=== PATIENT | female | born 2000 | race Caucasian/White ===

== ENCOUNTER 2025-04-02 07:17 | Inpatient (IN) | payer OTHER, SELFPAY ==
[2025-04-02] VITALS (48 sets, daily range): BP systolic 112–135; BP diastolic 57–85; PULSE 79–115; RESP 16–20; TEMP 36.4–36.9; O2SAT 96–100; BMI 35.2
[2025-04-02 08:04] LABS: Hematocrit 32.4 % (37-47); Hemoglobin 10.4 g/dL (12.0-15.0); Immature Granulocytes Count 0.050 X10^3/uL (0.0-0.0); Mean Corp Hgb Conc 32.1 g/dL (32-36); Mean Corpuscular Volume 90.3 fL (81-99); Mean Platelet Vol. 10.0 fl (6.2-12.0); NRBC Flagged by Analyzer 0 % (0-5); Platelet Count 319 K/mm3 (150-450); RBC Distribution Width CV 13.5 % (11.6-14.6); RBC Distribution Width SD 44.6 fl (35.1-43.9); Red Blood Count 3.59 M/mm3 (4.2-5.4); White Blood Count 9.7 K/mm3 (4.4-11.0)
--- NOTE | 2025-04-02 08:12 | PCM.HP.OB ---
HPI - General General Date of Admission: 04/02/25 HPI Narrative SHARITA BOSE, is a 24 F at 37.6 weeks gestation who presents for scheduled induction of labor per [facility] recommendation. Maternal Data Information NAMRATA Calculator Estimated Delivery Date Method Current WG Current Estimate 04/17/25 Manual 37w 6d [facility] Medical History (Updated 04/02/25 @ 08:18 by Ana Forrester CNM) Isoimmunization Home Medications ?Medication ?Instructions ?Recorded ?Last Taken ?Type acyclovir 400 mg tablet 400 mg PO TID hsv 04/02/25 04/01/25 History vitamin#30 30 mg iron-10 cap PO 04/02/25 04/01/25 History mg iron-folic acid 1 mg-omg3 capsule (OB Complete With Dha) sertraline 25 mg tablet (Zoloft) 25 mg PO DAILY anxiety 04/02/25 04/02/25 History Allergy/AdvReac Type Severity Reaction Status Date / Time amoxicillin (From Augmentin) Allergy Intermediate Rash Verified 04/02/25 07:44 clavulanic acid (From Allergy Intermediate Rash Verified 04/02/25 07:44 Augmentin) Social History Smoking Status: Never smoker History Elective abortions Hx Para 1 Spontaneous abortions Hx # Term Pregnancies Ectopic pregnancies Hx # Pregnancies Multiple births # of living children ROS Eyes Eyes: Denies blurry vision, change in vision or spots in vision ENT HEENT: Denies dizziness or headache(s) Cardiovascular Cardiovascular: Denies abdominal pain, chest pain or dyspnea Respiratory/Chest Respiratory/Chest: Denies cough, dyspnea, shortness of breath at rest or shortness of breath with exertion Gastrointestinal Gastrointestinal: Denies abdominal pain, diarrhea or vomiting Genitourinary Genitourinary: Denies change in urinary stream, difficulty urinating or dysuria Musculoskeletal Musculoskeletal: Reports none Integumentary Integumentary: Denies rash Neurologic Neurologic: Denies dizziness, headache(s), memory loss or weakness Psychiatric Psychiatric: Reports none Vital Signs Vital Signs Vital Signs: 04/02/25 08:03 04/02/25 08:03 04/02/25 08:03 Temperature Temperature Source Temporal Pulse Rate 113 H Respiratory Rate Blood Pressure 134/72 H BP Systolic 134 BP Diastolic 72 Pulse Ox 04/02/25 08:03 04/02/25 08:03 04/02/25 08:04 Temperature 98.3 F Temperature Source Pulse Rate 115 H Respiratory Rate 16 Blood Pressure BP Systolic BP Diastolic Pulse Ox 04/02/25 08:04 Temperature Temperature Source Pulse Rate Respiratory Rate Blood Pressure BP Systolic BP Diastolic Pulse Ox 97 Weight Weight: 204 lb 12.8 oz Body Mass Index (BMI) 35.2 Physical Exam Const alert, oriented x3 and no apparent distress General Appearance: cooperative Orientation / Consciousness: awake Exam Limitations: no limitations HEENT normocephalic Head and Scalp: normal to inspection Eyes General Eye: normal appearance of both eyes Neck full ROM and no lymphadenopathy Lymph Lymphatic: no lymphadenopathy noted Chest inspection of chest normal Resp normal respiratory effort, normal air movement and clear to auscultation bilaterally Effort and Inspection: able to speak in complete sentences and symmetric chest movement Cardio regular rate and regular rhythm GI normal to inspection, nondistended, normoactive bowel sounds Manual OB Exam: presentation cephalic Back/Spine normal ROM Extremity full ROM and no calf tenderness Skin no rashes or lesions noted General Skin Exam: no breakdown Neuro oriented x3 and CN's II-XII intact bilaterally Psych mental status grossly normal and thought process normal Labs Labs Labs: Blood Type Pending Antibody Screen Pending Hct 32.4 % (37-47) L Hgb 10.4 g/dL (12.0-15.0) L Syphilis Total Ab Pending Assessment & Plan (1) 37 weeks gestation of : (2) Encounter for induction of labor: (3) Positive GBS test: (4) Anti-E isoimmunization affecting , antepartum: (5) Anxiety: (6) History of delivery of macrosomal : (7) Exposure to herpes simplex virus (HSV): (8) Hemochromatosis, hereditary: PLAN: Plan Admit to labor and delivery GBS + start PCN IV protocol Sales bulb placement Start Pitocin and increase per orders Dr. Torrez notified of admission and is collaborating physician
[2025-04-02] MEDS: Oxytocin 15 Units/NS 250ml 15 UNITS/250 ML IV.SOLN 2 UNITS IV (08:40)
[2025-04-02] MEDS: Lactated Ringers 1,000 ML 50 ML IV (08:47)
[2025-04-02] MEDS: Penicillin G Pot 5,000,000 UNITS in 0.9% Normal Saline (100mL MB+) 100 ML 150 UNITS IV (08:47)
[2025-04-02 08:53] LABS: Syphilis Antibodies Nonreactive (Nonreactive)
[2025-04-02] MEDS: 0.9% Normal Saline Single 100 ML IV.SOLN. INTRA-UTER (11:17)
[2025-04-02] MEDS: Penicillin G 3,000,000 Units 50 ML 100 UNITS IV (12:16)
--- NOTE | 2025-04-02 12:32 | PCM.PN.CNM ---
Subjective Subjective Patient seen at bedside. In hands and knees position. Breathing through contractions. Sales bulb out. Objective Data Objective Data Vital Signs: Vital Signs Temp Pulse Resp BP Pulse Ox 98.5 F 95 20 H 135/84 H 97 04/02/25 12:14 04/02/25 12:09 04/02/25 12:14 04/02/25 12:09 04/02/25 08:04 Weight: 204 lb 12.8 oz Body Mass Index (BMI) 35.2 Intake & Output: Intake and Output for Last 24 Hours 03/31/25 04/01/25 04/02/25 23:59 23:59 23:59 Intake Total 119.07 / 119.07 Balance 119.07 / 119.07 Lab / Micro Data 04/02/25 07:50 Labs: Laboratory Results - last 24 hr 04/02/25 07:50: WBC 9.7, RBC 3.59 L, Hgb 10.4 L, Hct 32.4 L, MCV 90.3, MCH 29.0, MCHC 32.1, RDW Std Deviation 44.6 H, RDW Coeff of Argelia 13.5, Plt Count 319, MPV 10.0, Immature Gran % (Auto) 0.500, Neut % (Auto) 65.1, Lymph % (Auto) 21.7, [place] % (Auto) 8.3, Eos % (Auto) 3.6, Baso % (Auto) 0.8, Absolute Neuts (auto) 6.3, Absolute Lymphs (auto) 2.10, Nucleated RBC % 0, Syphilis Total Ab Nonreactive, Blood Type A POSITIVE, Antibody Screen POSITIVE H, Antibody Identification ANTI-E, Crossmatch See Detail Assessment & Plan (1) Hemochromatosis, hereditary: (2) Exposure to herpes simplex virus (HSV): (3) History of delivery of macrosomal : (4) Anxiety: (5) Anti-E isoimmunization affecting , antepartum: (6) Positive GBS test: (7) Encounter for induction of labor: (8) 37 weeks gestation of : PLAN: Plan Patient declining CE at this time Cat. 1 tracing Contractions palpate mild- moderate Pitoicn at 8 mu/min- continue to increase per policy GBS + Treated with PCN IV Continue present plan of care Pain medications if indicated
[2025-04-02] MEDS: fentaNYL-bupivacaine (epidural) 100 ML BAG EPIDURAL (13:24)
--- NOTE | 2025-04-02 15:42 | OB.VAGDELI_ITS ---
Assessment & Plan (1) (spontaneous vaginal delivery): (2) Hemochromatosis, hereditary: (3) Anxiety: (4) Anti-E isoimmunization affecting , antepartum: (5) Care and examination of lactating mother: Maternal Data Information NAMRATA Calculator Estimated Delivery Date Method Current WG Current Estimate 04/17/25 Manual 37w 6d Vaginal Delivery Maternal Presentation Maternal Presentation: Medically Indicated Induction Maternal Presentation: at 37.4 weeks gestation for scheduled induction of labor for anti-E isoimmunization. Type of Induction: Pitocin, Sales Bulb and Amniotomy Medical Reason for Induction: Other Vaginal Delivery Information Procedure Performed: Spontaneous Vaginal Delivery Surgeon/Practitioner: Ana Forrester Pre-Procedure Diagnosis: Term gestation, Induction of labor Post-Procedure Diagnosis: , Live female infant Type of anesthesia: Epidural Estimated Blood Loss: 200 Time of Delivery: 15:08 Findings Description of procedure: Patient progressed to complete dilation with bulging bag. A.R.O.M for moderate amount of clear fluid. Patient began feeling pressure. With good maternal effort and 1 push, head delivered followed by anterior shoulder and remainder of body without any force, delay, or traction. Vigorous female was delivered atraumatically and placed on maternal abdomen. Pitocin IV started for active management of the third stage of labor. 3 vessel cord clamped and cut after moderate delay and infant placed immediately skin to skin with patient. Cord blood collected due to Anti-E. Placenta delivered spontaneously and intact. After inspection, vagina and perineum are intact. Vaginal sweep performed. Fundus is firm 2 below U and bleeding is hemostatic. Sponge and sharps counts correct. Patient and infant bonding well at this time. Dr. Torrez notified of delivery. Routine post orders placed. Presentation: Vertex Amniotic Membrane Rupture Type: Artificial Amniotic Fluid Description: Clear Placental Delivery Description: Spontaneous Placenta Disposition: [facility] Specimen collected: No Cord Vessel Description: 3 Vessels Cord Entanglement: None Nuchal Cord Compression: Without compression A Gender: Female (1 minute): 8 (5 minute): 8 Delayed Cord Clamping: Yes Servicing Manager individual small group instructor: No Post Vaginal Deli Medications given after delivery: IV Pitocin Episiotomy Description: None Laceration: None Complication Complications: No
[2025-04-02] MEDS: Oxytocin 15 Units/NS 250ml 15 UNITS/250 ML IV.SOLN 83 UNITS IV (15:55)
[2025-04-03] VITALS (9 sets, daily range): BP systolic 107–120; BP diastolic 61–69; PULSE 63–85; RESP 16; TEMP 36.2–36.4; O2SAT 96–99
--- NOTE | 2025-04-03 06:36 | DS.PCM_ITS ---
Providers Date of Admission: 04/02/25 Reason For Visit: VAGINAL DELIVERY Diagnosis Discharge Diagnosis (1) (spontaneous vaginal delivery): Status: Acute Code(s): O80 - Encounter for full-term uncomplicated delivery (2) Hemochromatosis, hereditary: Status: Acute Code(s): E83.110 - Hereditary hemochromatosis (3) Anxiety: Status: Acute Code(s): F41.9 - Anxiety disorder, unspecified (4) Anti-E isoimmunization affecting , antepartum: Status: Acute Code(s): O36.0990 - Maternal care for other rhesus isoimmunization, unspecified trimester, not applicable or unspecified (5) Care and examination of lactating mother: Status: Acute Code(s): Z39.1 - Encounter for care and examination of lactating mother Plan Patient declining CE at this time Cat. 1 tracing Contractions palpate mild- moderate Pitoicn at 8 mu/min- continue to increase per policy GBS + Treated with PCN IV Continue present plan of care Pain medications if indicated Medications at Discharge Home Medications vitamin#30 30 mg iron-10 mg iron-folic acid 1 mg-omg3 capsule (OB Complete With Dha) cap PO 04/02/25 sertraline 25 mg tablet (Zoloft) 25 mg PO DAILY anxiety 04/02/25 acetaminophen 500 mg tablet 1,000 mg (2 x 500 mg) PO Q6H PRN PRN Pain 1-10 Or Fever #0 tabs 04/03/25 Hospital Course Operations None Procedures None Summary of Care Provided Minutes Spent on Discharge: 15 Hospital Course: Patient had vaginal delivery. Hospital course was uneventful. Physical Exam Narrative Patient seen at bedside. Denies pain. Ambulating and voiding without difficulty. Lochia decreased. Desires discharge home today. Const alert and oriented x3 General Appearance: Negative for in distress HEENT normocephalic Eyes General Eye: normal appearance of both eyes Neck General: normal visual inspection Chest Chest: symmetrical chest wall rise Resp normal respiratory effort and normal air movement Effort and Inspection: symmetric chest movement; Negative for tachypneic Auscultation: clear to auscultation bilaterally Cardio regular rate and regular rhythm Peripheral Pulses: pulses 2+ throughout GI normal to inspection, nondistended, normoactive bowel sounds Narrative: Ice to perineum OB / External & Speculum: vaginal bleeding and other Lochia decreasing Uterus Palpation: uterus fundus firm (Below U) Extremity normal to inspection, full ROM and normal capillary refill Skin no rashes or lesions noted Neuro oriented x3, CN's II-XII intact bilaterally and gait normal Psych mental status grossly normal, thought process normal and activity/motor behavior normal Weight / BMI Weight Weight: 204 lb 12.8 oz Body Mass Index (BMI) 35.2 ABG / Lab / Microbiology Data 04/02/25 07:50 Laboratory: Laboratory Results - last 24 hr 04/02/25 07:50: WBC 9.7, RBC 3.59 L, Hgb 10.4 L, Hct 32.4 L, MCV 90.3, MCH 29.0, MCHC 32.1, RDW Std Deviation 44.6 H, RDW Coeff of Argelia 13.5, Plt Count 319, MPV 10.0, Immature Gran % (Auto) 0.500, Neut % (Auto) 65.1, Lymph % (Auto) 21.7, [place] % (Auto) 8.3, Eos % (Auto) 3.6, Baso % (Auto) 0.8, Absolute Neuts (auto) 6.3, Absolute Lymphs (auto) 2.10, Nucleated RBC % 0, Syphilis Total Ab Nonreactive, Blood Type A POSITIVE, Antibody Screen POSITIVE H, Antibody Identification ANTI-E, Crossmatch See Detail D/C Instructions Discharge Activity: Return to Normal Activity, No Restrictions, May Drive, May Shower and May Take a Tub Bath (Warm water only. No bath salts, soaps, bubbles) May resume sexual activity in: 6-8 weeks Weight Bearing Status: Weight bearing as tolerated Call your doctor if you observe: Fever of 101 or Higher, Inability to urinate, Using more than 1 pad per hour, Shortness of breath, Dizziness, Chest pain, Calf discomfort and Uncontrolled pain DC O2, CPAP, BIPAP Needs Home O2 Discharge instructions: No Please Follow Up With: [facility] Amaya PEÑA When: 2 weeks in office or virtual Meaningful Use Info Meaningful Use Meaningful Use Diagnoses (Choose all that apply): None applicable Discharge Plan Admission Admit Date/Time: 04/02/25 07:17 Primary Reason for Your Visit: Labor and Delivery Attending Provider: Ana Forrester Discharge Orders/Prescriptions Prescriptions: New acetaminophen 500 mg Tablet 1,000 mg PO Q6H PRN PRN (Reason: Pain 1-10 Or Fever) Qty: 0 0RF Continued sertraline [Zoloft] 25 mg tablet 25 mg PO DAILY OB Complete With Dha 30 mg iron-10 mg iron-1 mg capsule PO Discontinued acyclovir 400 mg tablet 400 mg PO TID Referrals / Follow Up: Ana Forrester CNM [Med Staff - Adv Practice Prof] - Disposition Disposition (needs filled in before D/C Order can be placed): Home, Self Care
--- NOTE | 2025-04-03 11:18 | CASEMGMT ---
Social Work Assessment Labor and Delivery Unit Patient Address: [address] [place] [address]. [place] [address] Phone number: [phone] Date of Referral: 04/02/25 Time of Referral:? 1900 Referred By: Ana Forrester Date of Intervention: ?04/03/25? Time of Intervention:? 1045 Reason for Referral:? mental health Sw completed chart review and acknowledges social work consult. Sw presented to bedside and introduced self to mother of baby (MOB- Tosha) and father of baby (FOB- Aydin). Sw explained reason for sw involvement and completed psychosocial assessment. History obtained from: medical records, MOB and FOB Household composition: Currently residing in the family home is MOB, ABIEL and their almost 3 year old daughter (Elma) and baby when ready for discharge. Parents deny any problems or concerns with housing, stating it is safe and secure. Patient's parent/guardian status:? Parents report that they met while both were in the at [place]. They have been together since 2019 and since 2020. baby is second baby for parents together. No concerns reported of domestic violence or intimate partner violence. ? Medical History: ?ASHER is 24 year old female who is 2, para 1- now 2 following labor and deliver of . MOB received routine care with [facility]. ASHER presented to hospital for induction of labor and delivered baby via vaginal delivery on 04/02/25 at 37 weeks gestation. Baby girl, named Marquita Newby, was born weighing 6lb 9oz with apgars of 8 and 8 at one and five minutes of life, respectfully. ASHER is breast feeding and states that baby will be followed by Dr. Linsey Vick for pediatrics. Educational Status: Both parents graduated from high school and attended college. No problems with reading, learning or comprehension. ? Financial Status: FOB is gainfully employed for the formerly [employer], later [employer] working in [employer]). MOB is a stay at home mom. Supplies:?? All necessary baby supplies obtained, including: car seat, safe sleep space, clothes, diapers and wipes. Childcare/Caregiver(s):? MOB will be the primary acute care surgeon to baby, along with FOB when he is not working. Transportation:?? Both parents have their drivers license and reliable means of transportation, no barriers at this time. Programs/Agencies Involved: ?Parents are not connected to community resources as they are over income. ?? Children Services/Legal Issues:??No history of children services involvement, no concerns warranting referral to be made. ? Behavioral Health Issues: ??Mental Health History:?ABIEL states that he has been diagnosed with anxiety, depression and PTSD. He states that he is connected to [facility] and private providers. ABIEL is also prescribed Lexapro by his primary care provider. ABIEL states that he was officially not connected to anything connected as of December of this year, and he can tell that his quality of life has significantly improved since then, including his mental health. ASHER reports that she has been diagnosed with anxiety and states that she did experience depression after her first baby was born. MOB states at that time ABIEL was still in the [place] family supports. MOB states that at that time she experienced frustration, she was quicker to feel on edge and was quicker to be upset. MOB states that when she stopped breast feeding she was also on edge and anxious more. MOB states that she is also on medication ([facility]ft) [facility], but she is transitioning services to [facility]. ?? Substance Use History:?PNo drug screens observed while completing chart review. ?? Family/Social Stressors:? MOB denies any issues, concerns or stressors at this time. Support Systems: ASHER states that ABIEL, her parents and her cousins are her biggest supports at this time. Depression/Shaken Baby/Safe Sleeping: Donya educated parents on signs and symptoms of baby blues and depression and anxiety to be on the lookout for during this period. Donya explained that due to ASHER's mental health history she is more at risk for experiencing symptoms. MOB states that mentally during this she felt great. MOB states that she started medication and she feels like it helped her significantly. MOB reports that since delivering baby she also feels really good. MOB states that she is happy that baby is healthy. MOB states that she is eager to be home and introduce their older daughter to baby. MOB denies feeling anxious, down, sad or emotional. MOB reports that she has felt calm and her body has been able to relax and rest. FOLissy reports that if ASHER were to struggle during this period he would be able to recognize and would know how to help and support her. Sw educated parents on shaken baby prevention and ABCs of safe sleep, parents express understanding. ? ASSESSMENT:?MOB and baby admitted following labor and delivery. MOB and FOB were pleasant and welcoming of sw. Both parents have mental health history and are connected to mental health supports. Both parents are also prescribed medication to help them manage their symptoms, and state that they can tell positive differences with the medication. When MOB had her first baby they were living under different circumstances, [place] and did not have support. FOB was also gone for four months leaving MOB by herself and a colicky baby. Parents report that this time, they are closer to family, no longer involved with the and connected to resources that have made a significant improvement in their lives. Parents were engaging in conversation, which flowed naturally. Parents made and maintained eye contact. Parents have all necessary baby items and have lots of natural supports in place. PLAN:? No other services requested or indicated. MOB and baby to be discharged when medically ready. Parents were provided literature regarding: signs and symptoms of baby blues and mood and anxiety disorders, Help Me Grow, shaken baby prevention, ABCs of safe sleep and a list of county resources that are available for them should any needs present themselves. Jamie Adams, NAILER MACHINE, HIGHWAY RESEARCH ENGINEER
--- NOTE | 2025-04-07 13:33 | NURSING ---
Follow up phone call made, patient states she is doing well. States her bleeding is minimal and denies any headaches, visual changes or Baby Blues. States is going well and has a visit scheduled for tomorrow. Denies any questions or concerns at this time.
== END 2025-04-03 17:30 | disposition home or self-care (01) | DRG 806 ==
PROVIDERS: Admitting Provider Advanced Practice Midwife; Referring Provider Advanced Practice Midwife; Visit Provider Advanced Practice Midwife
DX: O99.284 Endocrine, nutritional and metabolic diseases complicating childbirth (principal); Z37.0 Single live birth; O98.82 Other maternal infectious and parasitic diseases complicating childbirth; O36.0930 Maternal care for other rhesus isoimmunization, third trimester, not applicable or unspecified; E83.110 Hereditary hemochromatosis; F41.9 Anxiety disorder, unspecified; O99.344 Other mental disorders complicating childbirth; Z3A.37 37 weeks gestation of pregnancy; B95.1 Streptococcus, group B, as the cause of diseases classified elsewhere; Z20.828 Contact with and (suspected) exposure to other viral communicable diseases; Z87.59 Personal history of other complications of pregnancy, childbirth and the puerperium; N96 Recurrent pregnancy loss; O99.893 Other specified diseases and conditions complicating puerperium
CPT/HCPCS: 59025; 59050; 85025; 86780; 86850; 86870; 86900; 86901; 86902; 86920; 86922; 99221; G0378

== ENCOUNTER 2025-04-09 08:40 | Emergency (ER) | payer OTHER, SELFPAY ==
[2025-04-09 08:41] VITALS: BP 131/94; PULSE 64; RESP 16; TEMP 37.2; O2SAT 99; BMI 31.4
--- NOTE | 2025-04-09 08:56 | CT_ITS ---
PROCEDURE: ABDOMEN/PELVIS WITHOUT CONT 04/09/2025 REASON FOR EXAM: PAIN Abdominal cramping. One-week . Vaginal delivery. TECHNIQUE: ABDOMEN/PELVIS WITHOUT CONT Noncontrast technique limits evaluation of the abdominal and pelvic viscera. Coronal and Sagittal reconstruction series were provided. One or more dose reduction techniques were used (e.g., Automated exposure control, adjustment of the mA and/or kV according to patient size, use of iterative reconstruction technique). RADIATION DOSE SUMMARY: CTDlvol: 11.44 mGy DLP: 637.18 mGycm COMPARISON: None FINDINGS: Lung bases: Unremarkable Liver: Normal size. No obvious mass. Gallbladder: Gallbladder is unremarkable. Spleen: Normal size. Pancreas: Normal size. No surrounding inflammation. Adrenals: Unremarkable Kidneys: No urolithiasis. No hydronephrosis. Bladder: Unremarkable Reproductive Organs: Diffuse enlargement of the uterus in keeping with recent state. Bowel: Unremarkable Appendix: The appendix is not identified. There is no inflammatory process identified in the right lower quadrant to suggest appendicitis. Lymph nodes: No suspicious lymph node enlargement. Vasculature: The abdominal aorta and IVC contours are normal. Noncontrast technique limits evaluation. Peritoneum / Retroperitoneum: Unremarkable Bones: Unremarkable CT/Abdomen/Pelvis without Cont IMPRESSION: UNREMARKABLE NONCONTRAST CT OF THE ABDOMEN AND PELVIS Reading Location: [id number]
--- NOTE | 2025-04-09 08:56 | ED.VIS.GI ---
HPI HPI - GI History of Present Illness Chief Complaint: Abd Pain Detail of Chief Complaint: Abdominal pain Informant: patient Narrative Narrative: Patient presents with sudden onset of lower abdominal pain that started around 6:30 AM. Pain came on rather suddenly. Patient is about 1 week vaginal delivery. She denies increased vaginal bleeding or passing any clots. She has had some mild nausea but no vomiting. She describes a loose stool. She denies fever. She denies dysuria urgency or frequency. Patient is G5, P2. No prior abdominal surgeries. [facility] Medical History (Updated 04/09/25 @ 10:[address] Betzaida Matrinez, DO) Isoimmunization Home Medications ?Medication ?Instructions ?Recorded ?Last Taken ?Type vitamin#30 30 mg iron-10 cap PO 04/02/25 04/01/25 History mg iron-folic acid 1 mg-omg3 capsule (OB Complete With Dha) sertraline 25 mg tablet (Zoloft) 25 mg PO DAILY anxiety 04/02/25 04/02/25 History acetaminophen 500 mg tablet 1,000 mg (2 x 500 mg) PO Q6H PRN 04/03/25 Unknown Rx PRN Pain 1-10 Or Fever #0 tabs cephalexin 500 mg capsule 500 mg PO Q6 #28 CAPSULES 04/09/25 Unknown Rx phenazopyridine 200 mg tablet 200 mg PO TID 6 doses #6 tabs 04/09/25 Unknown Rx (Pyridium) Allergy/AdvReac Type Severity Reaction Status Date / Time amoxicillin (From Augmentin) Allergy Intermediate Rash Verified 04/09/25 08:44 clavulanic acid (From Allergy Intermediate Rash Verified 04/09/25 08:44 Augmentin) Social History Smoking Status: Never smoker ROS ROS ED Review of Systems ROS Unobtainable: other Constitutional Constitutional ED: Reports lethargy; Denies chills, fever(s), sweats or weight loss Eyes Eyes: Denies blurry vision, change in vision or diplopia ENT ENT ED: Denies rhinorrhea or sore throat Cardiovascular Cardiovascular: Denies chest pain, orthopnea or racing heartbeat Respiratory/Chest Respiratory/Chest: Denies cough, dyspnea, dyspnea on exertion, orthopnea or sputum Gastrointestinal Gastrointestinal: Reports abdominal pain and nausea; Denies diarrhea or vomiting Genitourinary Genitourinary ED: Denies dysuria, hematuria or urinary frequency Musculoskeletal Musculoskeletal: Denies arthralgias, back pain, myalgias or neck pain Integumentary Denies abscess, Abrasions or rash Neurologic Neurologic: Denies headache(s) or weakness Psychiatric Psychiatric: Denies anxiety, depression or suicidal thoughts Endocrine Endocrinology: Denies polydipsia, polyphagia or polyuria Hematologic/Lymphatic Hematologic/Lymphatic: Denies easy bleeding, easy bruising or lymphadenopathy Allergic/Immunologic Allergic/Immunologic ED: Denies mouth swelling, tongue swelling or urticaria EXAM Physical Exam Const Vital Signs: 04/09/25 08:41 04/09/25 09:54 Temperature 99.0 F Temperature Source Oral Pulse Rate 64 Respiratory Rate 16 Blood Pressure 131/94 H 116/65 Blood Pressure Mean 106 82 Pulse Ox 99 Oxygen Delivery Method Room Air Positive well nourished and well developed General Appearance ED: well developed and NAD HEENT Reports TM's clear and moist mucous membranes normocephalic and atraumatic; Negative for trauma or tenderness Tympanic Membrane ED: Yes TM's clear Eyes PERRL and EOMs intact bilaterally General Eye ED: Negative for pale conjunctiva or scleral icterus Neck no lymphadenopathy, supple and no JVD General: Negative for tenderness Chest Wall inspection of chest normal and palpation of chest normal Chest: Negative for tenderness Resp normal respiratory effort and clear to auscultation bilaterally Effort and Inspection: Negative for respiratory distress or pain with movement Auscultation: Negative for rhonchi, wheezes or diminished lung sounds Cardio regular rate, regular rhythm, S1 normal heart sound, S2 normal heart sound and no murmurs Peripheral Pulses: pulses 2+ throughout GI normal to inspection, nondistended, normoactive bowel sounds, soft to palpation, non-distended and no masses GI Narrative: Mild tenderness over suprapubic region and left lower quadrant. There are some mild guarding. No rebound or rigidity or peritoneal signs. Back/Spine no CVA tenderness and no thoracic nor lumbar tenderness Extremity normal to inspection General Extremety ED: Negative for edema General Extremity: Negative for edema Neuro oriented x3, CN's II-XII intact bilaterally, no sensory deficits noted and gait normal Sensorium / Orientation: awake, alert, oriented to person, oriented to place and oriented to time Motor Exam: strength 5/5 throughout and strength abnormal Psych mental status grossly normal Skin no rashes or lesions noted and no wounds MDM MDM MDM Narrative Medical decision making narrative: Patient presented with lower abdomen pain that started this morning. Some mild nausea. She is about 1 week vaginal delivery. No increased vaginal bleeding. Presented minimally elevated blood pressure 131/94. CBC with differential obtained showed a white count of 8.1 with hemoglobin 13.5 and platelet count of 414. Chemistries were unremarkable. LFTs normal other than a slightly elevated alk phos of 286. Urinalysis positive for 500 leukocyte esterase as well as 50-100 RBCs and 50-100 WBCs with +1 bacteria. Urine culture sent. I ordered Rocephin [address] scan of the abdomen pelvis was unremarkable. Discussed case with Ana Forrester and went over all results. Will discharge to home with prescription for Keflex and Pyridium. Advised to follow-up with her SOFTWARE SUPPORT REPRESENTATIVE's office within the next 3 to 5 days. Vies to return if worsening pain, fever, vomiting, or condition should worsen anyway. Repeat blood pressure 116/65. I do not suspect -induced hypertension or preeclampsia. Patient lists allergy to Augmentin but states she can safely take amoxicillin as she is just allergic to the clavulanic acid component. Lab Data Attestation: I reviewed the patient's lab results. Labs: Laboratory Results - last 24 hr 04/09/25 04/09/25 08:52 09:09 WBC 8.1 RBC 4.68 Hgb 13.5 Hct 42.2 MCV 90.2 MCH 28.8 MCHC 32.0 RDW Std Deviation 44.5 H RDW Coeff of [place] 14.0 Plt Count 414 MPV 9.3 Immature Gran % (Auto) 0.400 Neut % (Auto) 58.5 Lymph % (Auto) 30.7 [place] % (Auto) 4.5 Eos % (Auto) 5.2 H Baso % (Auto) 0.7 Absolute Neuts (auto) 4.7 Absolute Lymphs (auto) 2.48 Nucleated RBC % 0 Sodium 139 Potassium 4.3 Chloride 102 Carbon Dioxide 23.7 Anion Gap 13 BUN 12 Creatinine 0.75 Estim Creat Clear Calc 118.51 Est GFR (MDRD) Non-Af 113 BUN/Creatinine Ratio 16.2 Glucose 89 Calcium 9.6 Total Bilirubin 0.25 AST 18 ALT 17 Alkaline Phosphatase 286 H Total Protein 7.6 Albumin 4.0 Globulin 3.6 Albumin/Globulin Ratio 1.1 Urine Color Red Urine Clarity Turbid Urine pH 6.0 Ur Specific [place] 1.020 Urine Protein 500 H Urine Glucose (UA) Normal Urine Ketones 5 H Urine Occult Blood 250 H Urine Nitrite Negative Urine Bilirubin Negative Urine Urobilinogen Normal Ur Leukocyte Esterase 500 H Urine RBC 50-100 SEEN Urine WBC 50-100 SEEN Ur Squamous Epith Cells 0-5 SEEN Urine Bacteria 1+ Urine Mucus 0 SEEN Radiography Diagnostic Testing: Clinical Impression(s) from Imaging Studies Abdomen/Pelvis CT 04/09/25 08:56 IMPRESSION: UNREMARKABLE NONCONTRAST CT OF THE ABDOMEN AND PELVIS Reading Location: [facility] Discharge Plan Triage Chief Complaint: Abd Pain ED Provider: Betzaida Martinez Dx/Rx/DC Orders Clinical Impression: Abdominal pain, UTI (urinary tract infection) Instructions: ED Cystitis Female Adult Prescriptions: New cephalexin 500 mg capsule 500 mg PO Q6 Qty: 28 0RF phenazopyridine [Pyridium] 200 mg tablet 200 mg PO TID Qty: 6 0RF No Action sertraline [Zoloft] 25 mg tablet 25 mg PO DAILY OB Complete With Dha 30 mg iron-10 mg iron-1 mg capsule PO acetaminophen 500 mg Tablet 1,000 mg PO Q6H PRN PRN (Reason: Pain 1-10 Or Fever) Qty: 0 0RF Primary Care Provider: Care Physician,No Primary Referrals: Care Physician,No Primary [Primary Care Provider] - Activity Restrictions/Additional Instructions: Follow-up with your SOFTWARE SUPPORT REPRESENTATIVE within the next 3 to 5 days. Print Language: Gu[place]ese Disposition Disposition: Home, Self Care
[2025-04-09 09:04] LABS: Hematocrit 42.2 % (37-47); Hemoglobin 13.5 g/dL (12.0-15.0); Immature Granulocytes Count 0.030 X10^3/uL (0.0-0.0); Mean Corp Hgb Conc 32.0 g/dL (32-36); Mean Corpuscular Volume 90.2 fL (81-99); Mean Platelet Vol. 9.3 fl (6.2-12.0); NRBC Flagged by Analyzer 0 % (0-5); Platelet Count 414 K/mm3 (150-450); RBC Distribution Width CV 14.0 % (11.6-14.6); RBC Distribution Width SD 44.5 fl (35.1-43.9); Red Blood Count 4.68 M/mm3 (4.2-5.4); White Blood Count 8.1 K/mm3 (4.4-11.0)
[2025-04-09] MEDS: 0.9% Normal Saline (1000mL) 1,000 ML 125 ML IV (09:08)
[2025-04-09 09:13] LABS: Mucous, Urine 0 SEEN /hpf (<or=2+)
[2025-04-09 09:15] LABS: Color, Urine Red (Yellow); Glucose, Dipstick Normal (Normal); Ketone-Dipstick 5 mg/dl (Negative); Leukocyte Esterase-Dipstick 500 /ul (Negative); Nitrite-Dipstick Negative (Negative); Occult Blood-Urine 250 /ul (Negative); Protein-Dipstick 500 mg/dl (Negative); Specific Gravity, Urine 1.020 (1.002-1.030); Urine Bilirubin Dipstick Negative (Negative)
[2025-04-09 09:30] LABS: Red Blood Cells-Urine 50-100 SEEN /hpf (0-5); Squamous Epithelial Cells - UA 0-5 SEEN /hpf (5-10)
[2025-04-09 09:39] LABS: AST(SGOT) 18 U/L (<=31); Alanine Aminotransfer ALT/SGPT 17 U/L (<=34); Albumin, Serum 4.0 g/dL (3.5-5.0); Alkaline Phosphatase 286 U/L (35-104); Anion Gap 13 (5-15); BUN 12 mg/dL (4-19); BUN/Creat Ratio 16.2 RATIO (10-20); Calcium,Total 9.6 mg/dL (7.6-11.0); Carbon Dioxide 23.7 mmol/L (21.0-32.0); Chloride 102 mmol/L (98-108); Estimated Creatinine Clearance 118.51 ml/min (50-250); Globulin 3.6 g/dL (2.2-4.2); Glucose 89 mg/dL (70-99); Potassium 4.3 mmol/L (3.3-5.1)
[2025-04-09 09:54] VITALS: BP 116/65
[2025-04-09 10:37] VITALS: BP 106/69; PULSE 52; RESP 16; TEMP 36.4; O2SAT 100
== END 2025-04-09 10:42 | disposition home or self-care (01) ==
PROVIDERS: Emergency Provider Emergency Medicine; Visit Provider Emergency Medicine
DX: N39.0 Urinary tract infection, site not specified (principal); R10.30 Lower abdominal pain, unspecified
CPT/HCPCS: 74176; 80053; 81001; 85025; 87077; 87086; 87088; 96365; 99284; A4216